=== PATIENT | male | born 1930 | race Caucasian/White ===

== ENCOUNTER 2020-08-01 22:36 | Emergency (ER) | payer MEDICARE ==
[~2020-08-01] VITALS: Ht 188 cm; Wt 72.6 kg
--- NOTE | 2020-08-01 22:44 | NUR ---
Patient came to er bed 4 c/o RIGHT LEG PAIN, BACK PAIN, AND HEAD PAIN. PATIENT ASLSO STATES THAT HE FELL 2x DAYS AGO FROM [facility] AND WAS UNWITNESSED. PATIENT DENIES LOSING CONSCIOUSNESS. PATIENT IS AAOX3. NO SOB. BREATHING EVENLY AND UNLABORED ON ROOM AIR. CONNECTED TO THE MONITOR.
[2020-08-02] MEDS ORDERED: MORPHINE SULFATE INJ 4 MG/ML DISP.SYRIN ONE (00:29)
[2020-08-02] MEDS: MORPHINE SULFATE INJ 2 MG/ML DISP.SYRIN IM ONE (00:33)
--- NOTE | 2020-08-02 01:10 | NUR ---
REPORT GIVEN TO RUSH, STAFF AT [facility].
--- NOTE | 2020-08-02 01:13 | NUR ---
[facility] 20MINUTES ETA.
--- NOTE | 2020-08-02 01:50 | NUR ---
PATIENT TAKEN BY [facility] AFTER RECEIVING REPORT REGARDING PATIENT.
[2020-08-02 02:30] VITALS: BP 116/73
== END 2020-08-02 01:50 | disposition home or self-care (01) ==
LOC: ER 22:42
DX: S52.021A Displaced fracture of olecranon process without intraarticular extension of right ulna, initial encounter for closed fracture (principal); M54.2 Cervicalgia; M25.551 Pain in right hip; M79.641 Pain in right hand; M79.604 Pain in right leg; M54.9 Dorsalgia, unspecified; I48.91 Unspecified atrial fibrillation; K21.9 Gastro-esophageal reflux disease without esophagitis; I11.0 Hypertensive heart disease with heart failure; I50.9 Heart failure, unspecified; W01.0XXA Fall on same level from slipping, tripping and stumbling without subsequent striking against object, initial encounter; Y93.89 Activity, other specified; Y92.89 Other specified places as the place of occurrence of the external cause; Y99.8 Other external cause status
CPT/HCPCS: 70450; 71045; 72125; 73060; 73090; 73110; 73120 ×2; 73502; 96372; 99285; J2270